=== PATIENT | female | born 1975 | race Caucasian/White ===

== ENCOUNTER 2022-01-17 21:59 | Emergency (ER) | payer OTHER ==
[~2022-01-17 21:59] MED LIST: FLONASE 0.05% N16 GM; IBUPROFEN600 MG PO; Magic Mouth Wash PO
[2022-01-18 00:37] LABS: HEMOGLOBIN 13.3 gm/dl (12.3-15.3); RED BLOOD COUNT 5.29 M/UL (4.00-5.10); WHITE BLOOD COUNT 10.7 K/UL (4.5-11.0)
[2022-01-18 01:00] LABS: BUN/CREATININE RATIO 21 (0-10)
[2022-01-18] MEDS ORDERED: CEPHALEXIN500 M1 PO (02:13)
[2022-01-18] MEDS ORDERED: IBUPROFEN600 MG PO (02:13)
[2022-01-18] MEDS ORDERED: BACTRIM DS TAB1 EACH PO (02:13)
[2022-01-18] MEDS ORDERED: BENADRYL 50MG C50 MG PO (02:13)
== END 2022-01-18 02:49 | disposition home or self-care (01) ==
LOC: ER1 21:59
PROVIDERS: Physician Assistant
DX: L03.115 Cellulitis of right lower limb (principal)
CPT/HCPCS: 10060; 80053; 83605; 85025; 85610; 85652; 85730; 86140; 87040; 87070; 87077; 87186; 87205; 90471; 90715; 96374; 96375; 99283; J0696; J1100; J2270; J2405